=== PATIENT | male | born 1990 | race Two or more races ===

== ENCOUNTER 2020-04-27 16:46 | Emergency (ER) | payer BC ==
[~2020-04-27] VITALS: Ht 172.7 cm; Wt 87.1 kg
--- NOTE | 2020-04-27 16:47 | NUR ---
BIBS C/O CHILLS, LOWER BACK PAIN AND DYSURIA SINCE YESTERDAY, TO ER BED 9, HOOKED TO MONITOR, CHANGED TO HOSP GOWN, WARM BLANKET PROVIDED. DR BYRD AT BEDSIDE
[2020-04-27] MEDS ORDERED: KETOROLAC TROMETHAMINE INJ 30 MG/ML VIAL IV ONE (17:00)
[2020-04-27] MEDS ORDERED: IV NS 0.9% 1,000 ML BAG IV ONE (17:00)
--- NOTE | 2020-04-27 17:25 | NUR ---
urine sample collected and sent to lab
[2020-04-27] MEDS ORDERED: KETOROLAC TROMETHAMINE INJ 30 MG/ML VIAL ONE (17:28)
[2020-04-27 17:30] LABS: BASOPHILS % (AUTO) 0.1 % (0.0-2.0); HEMATOCRIT 42 % (39-51); HEMOGLOBIN 13.7 g/dL (13.5-17.5); LYMPHOCYTES # (AUTO) 0.8 /CMM (0.8-4.8); MEAN CORPUSCULAR HGB CONC 33 g/dl (31.0-36.0); MEAN CORPUSCULAR VOLUME 86 fL (80-96); MONOCYTES # (AUTO) 1.3 /CMM (0.1-1.30); MONOCYTES % (AUTO) 6.2 % (2.0-12.0); NEUTROPHILS # (AUTO) 18.7 /CMM (1.8-8.9); NEUTROPHILS % (AUTO) 89.7 % (43.0-81.0); PLATELET COUNT (AUTO) 253 /CMM (150-450); RED BLOOD CELL COUNT(AUTO) 4.84 MIL/uL (4.5-6.0); WHITE BLOOD COUNT (AUTO) 20.9 K/uL (4.3-11.0)
[2020-04-27 17:33] LABS: BILIRUBIN,URINE NEGATIVE (NEGATIVE); COLOR,URINE YELLOW (YELLOW); LEUKOCYTE ESTERASE ,URINE NEGATIVE (NEGATIVE); NITRITE, URINE NEGATIVE (NEGATIVE); PROTEIN,URINE NEGATIVE (NEGATIVE); UGLUCOSE NEGATIVE (NEGATIVE); UROBILINOGEN,URINE 0.2 EU/dL (0.2)
[2020-04-27 17:38] LABS: BACTERIA,URINE None seen /HPF (None Seen); SQUAMOUS EPITHELIAL CELL,UR 0-2 /HPF (None Seen); WBC,URINE 0-2 /HPF (0-3)
[2020-04-27 17:39] LABS: CALCIUM, SERUM 9.1 mg/dL (8.5-10.1); POTASSIUM 3.8 mmol/L (3.5-5.1)
[2020-04-27 17:45] LABS: ALBUMIN 4.4 g/dL (3.4-5.0); BILIRUBIN,DIRECT 0.4 mg/dL (0.0-0.2); TOTAL PROTEIN, SERUM 7.5 g/dL (6.4-8.2)
[2020-04-27] MEDS ORDERED: CEFTRIAXONE 1GM BAG (ER ONLY) 1 GM/50 ML PIGGYBACK IV ONE (18:00)
--- NOTE | 2020-04-27 18:20 | NUR ---
RAPID COVID SWAB DONE AND SENT TO LAB
[2020-04-27] MEDS ORDERED: CEFTRIAXONE 1GM BAG (ER ONLY) 50 ML IV ONE (18:32)
--- NOTE | 2020-04-27 19:06 | NUR ---
WATERPROOF BAG SEWER AT BEDSIDE FOR RYDER
--- NOTE | 2020-04-27 19:36 | NUR ---
REPORT GIVEN TO YVETTE BHANDARI FOR ELODIA
[2020-04-27] MEDS ORDERED: IBUP-1957 PO (21:00)
[2020-04-27] MEDS ORDERED: AMOX-430 PO (21:00)
--- NOTE | 2020-04-27 21:43 | NUR ---
Patient discharged to home in stable condition. Written and verbal after care instructions given. Patient verbalizes understanding of instruction.
[2020-04-27 21:44] VITALS: BP 131/80
== END 2020-04-27 21:44 | disposition home or self-care (01) ==
LOC: ER 16:50
DX: D72.829 Elevated white blood cell count, unspecified (principal); E80.6 Other disorders of bilirubin metabolism; K57.30 Diverticulosis of large intestine without perforation or abscess without bleeding; Z20.822 Contact with and (suspected) exposure to COVID-19
CPT/HCPCS: 36415; 71045; 74176; 76705; 80048; 80076; 81001; 85025; 87426; 87804; 96361; 96365; 96375; 99285; C9803; J0696; J1885; J7030